=== PATIENT | female | born 1960 | race Two or more races ===

== ENCOUNTER 2018-03-19 06:53 | Emergency (ER) | payer OTHER ==
[~2018-03-19] VITALS: Ht 152.4 cm; Wt 54.4 kg
[~2018-03-19 06:53] MED LIST: DOLOGEN CAPLET1 EACH PO; LIPITOR20 MG PO; ORPH100T PO
[2018-03-19] MEDS ORDERED: ZOMIG5 MG PO (07:17)
[2018-03-19] MEDS ORDERED: INTESTINEX680 M1 PO (14:16)
[2018-03-19] MEDS ORDERED: ZANTAC150 MG PO (14:16)
== END 2018-03-19 14:30 | disposition home or self-care (01) ==
LOC: ER 06:53
DX: K29.70 Gastritis, unspecified, without bleeding (principal); R10.13 Epigastric pain

== ENCOUNTER 2018-11-25 14:00 | Emergency (ER) | payer OTHER ==
[~2018-11-25] VITALS: Ht 152.4 cm; Wt 56.7 kg
[~2018-11-25 14:00] MED LIST changes: +INTESTINEX680 M1 PO; +ZANTAC150 MG PO; +ZOMIG5 MG PO
== END 2018-11-25 15:37 | disposition home or self-care (01) ==
LOC: ER 14:00
DX: R20.2 Paresthesia of skin (principal); F06.4 Anxiety disorder due to known physiological condition

== ENCOUNTER 2018-11-26 08:22 | Outpatient (CLI) | payer OTHER | END 2018-11-26 08:31 | disposition home or self-care (01) | LOC: LAB 08:22 | DX: R20.8 Other disturbances of skin sensation (principal) ==

== ENCOUNTER 2018-11-26 10:37 | Outpatient (CLI) | payer OTHER | END 2018-11-26 10:39 | disposition home or self-care (01) | LOC: MRI 10:37 | DX: R20.8 Other disturbances of skin sensation (principal) | CPT/HCPCS: 70553 ==

== ENCOUNTER 2020-05-19 09:21 | Outpatient (CLI) | payer OTHER | END 2020-05-19 09:25 | disposition home or self-care (01) | LOC: SONOGRAMA 09:21 | PROVIDERS: ATTEND Pathology Anatomic Pathology & Clinical Pathology | DX: E04.1 Nontoxic single thyroid nodule (principal) ==

== ENCOUNTER 2020-07-16 15:03 | Emergency (ER) | payer OTHER ==
[~2020-07-16] VITALS: Ht 152.4 cm; Wt 56.7 kg
[2020-07-16] MEDS ORDERED: ATORVASTATIN CA20 MG PO (15:30)
[2020-07-16] MEDS ORDERED: ZOLMITRIPTAN5 MG PO (15:31)
== END 2020-07-16 21:38 | disposition home or self-care (01) ==
LOC: ER 15:03
DX: S13.4XXA Sprain of ligaments of cervical spine, initial encounter (principal); X50.0XXA Overexertion from strenuous movement or load, initial encounter; Y93.B1 Activity, exercise machines primarily for muscle strengthening; Y92.098 Other place in other non-institutional residence as the place of occurrence of the external cause; Y99.8 Other external cause status; M54.12 Radiculopathy, cervical region; Z03.818 Encounter for observation for suspected exposure to other biological agents ruled out